=== PATIENT | male | born 1940 | race Caucasian/White ===

== ENCOUNTER → 2019-01-17 | Outpatient (CLI) | payer MEDICARE ==
[~2019-01-17] MED LIST: ASCO500 PO; CEPH500 PO; DONE5 PO; GLIM2 PO; GLUMETZA PO; HYDACE5 PO; LOSARTAN-HCTZ1 EAC1 PO
[2019-01-22 12:05] LABS: M-SPIKE, % Not Observed % (Not Observed); PROTEIN,TOTAL,URINE 7.5 mg/dL (Not Estab.)
== END | disposition home or self-care (01) ==
LOC: LAB SHORT 10:33 → LAB 10:33
PROVIDERS: Internal Medicine
DX: D64.9 Anemia, unspecified (principal); R79.89 Other specified abnormal findings of blood chemistry
CPT/HCPCS: 81050; 84166; 86335

== ENCOUNTER 2019-04-22 18:13 | Observation (INO) | payer MEDICARE ==
[~2019-04-22] VITALS: Ht 170.2 cm; Wt 72.8 kg
[~2019-04-22 18:13] MED LIST changes: +DONE10 PO; -DONE5 PO; +LOSARTAN POTAS100 MG PO; -LOSARTAN-HCTZ1 EAC1 PO
[2019-04-22 18:55] LABS: Source, Urine Clean Catch
[2019-04-22 18:58] LABS: BASOPHILS ABSOLUTE AUTO 0.07 K/mm3 (0.00-0.23); BASOPHILS PERCENT AUTO 1 % (0-2); EOSINOPHILS ABSOLUTE AUTO 0.09 K/mm3 (0.00-0.68); EOSINOPHILS PERCENT AUTO 1 % (0-6); Hematocrit 41.5 % (37.0-53.0); IMMATURE GRAN ABSOLUTE AUTO 0.04 K/mm3 (0.00-0.10); IMMATURE GRAN PERCENT AUTO 1 % (0-1); LYMPHOCYTES ABSOLUTE AUTO 1.96 K/mm3 (0.84-5.20); LYMPHOCYTES PERCENT AUTO 23 % (21-46); MONOCYTES ABSOLUTE AUTO 0.65 K/mm3 (0.16-1.47); MONOCYTES PERCENT AUTO 8 % (4-13); Mean Corpuscular HGB 28.7 pg (26.0-34.0); Mean Corpuscular HGB Conc 31.3 g/dL (31.5-36.5); Mean Corpuscular Volume 92 fL (80-100); Mean Platelet Volume 9.9 fL (9.1-12.4); NEUTROPHILS ABSOLUTE AUTO 5.69 K/mm3 (1.96-9.15); NEUTROPHILS PERCENT AUTO 67 % (41-73); Platelet Count 291 K/mm3 (150-400); RDW Standard Deviation 47.3 fL (35.1-46.3); Red Blood Cell Count 4.53 M/mm3 (4.30-5.90)
[2019-04-22 19:09] LABS: Bilirubin, Total 0.4 mg/dL (0.1-1.0); Bun/Creatinine Ratio 13.8 (12.0-20.0); Calcium, Blood 9.4 mg/dL (8.5-10.1); Creatinine, Blood 1.45 mg/dL (0.60-1.20)
[2019-04-22 19:16] LABS: Bilirubin, Urine Neg (Neg); Blood, Urine Neg (Neg); Glucose Qualitative, Urine Neg (Neg); Ketones, Urine 1+ (Neg); Leukocyte Esterase, Urine 1+ (Neg); Nitrite, Urine Neg (Neg); Protein, Urine 2+ (Neg); Urobilinogen, Urine 1+ (Normal)
[2019-04-22 19:34] LABS: Appearance, Urine Hazy (Clear); Color, Urine Yellow (P-Yellow)
[2019-04-22 19:35] LABS: Red Blood Cells, Urine 0-2 /hpf (0-2)
[2019-04-22 19:36] LABS: Bacteria Few /hpf; Squamous Epithelial Cells Rare /hpf (Few)
[2019-04-22] MEDS ORDERED: Metformin HCl1000 MG PO (19:40)
[2019-04-22] MEDS ORDERED: AMLO5 (19:41)
[2019-04-23 04:41] LABS: Hematocrit 37.5 % (37.0-53.0); Hemoglobin 11.9 g/dL (13.5-17.5); Mean Corpuscular HGB 28.3 pg (26.0-34.0); Mean Corpuscular HGB Conc 31.7 g/dL (31.5-36.5); Mean Corpuscular Volume 89 fL (80-100); Mean Platelet Volume 10.2 fL (9.1-12.4); Platelet Count 255 K/mm3 (150-400); RDW Coefficient Variation 14.2 % (11.7-14.2); RDW Standard Deviation 45.1 fL (35.1-46.3); White Blood Cell Count 7.55 K/mm3 (4.00-11.30)
[2019-04-23 05:05] LABS: Alanine Aminotransfer (ALT/SGP 26 U/L (12-78); Albumin, Blood 3.5 g/dL (3.4-5.0); Albumin/Globulin Ratio 1.1 (0.8-1.8); Alk Phos 91 U/L (50-136); Anion Gap 4 mmol/L (6-16); Aspartate Aminotrans (AST/SGOT 18 U/L (12-37); Bilirubin, Total 0.5 mg/dL (0.1-1.0); Blood Urea Nitrogen 18 mg/dL (8-24); Bun/Creatinine Ratio 15.1 (12.0-20.0); CO2, Blood 27 mmol/L (21-32); Calcium, Blood 8.7 mg/dL (8.5-10.1); Chloride, Blood 111 mmol/L (98-108); Creatinine, Blood 1.19 mg/dL (0.60-1.20); Globulin, Blood 3.2 g/dL (2.2-4.0); Glomerular Filtration Rate >60 (60-); Glucose, Blood 92 mg/dL (70-99); Potassium, Blood 4.2 mmol/L (3.5-5.5); Sodium, Blood 142 mmol/L (136-145); Total Protein, Blood 6.7 g/dL (6.4-8.2)
--- NOTE | 2019-04-23 05:40 | NUR ---
TRANSFER AND SUMMARY: REPORT RECIEVED FROM BRETT, SUPERVISOR BENZENE REFINING AND PT T/F VIA W/C TO ROOM 362 AT 0002. HE IS MOSTLY ORIENTED BUT WAS CONFUSED TO DATE/PLACE AND IS NOTED TO BE FORGETFUL MAKING ATTEMPTS OOB BY SELF TO USE RESTROOM DESPITE CALL LIGHT EDUCATION AND REINFORCEMENT. BED ALARM ARMED D/T ADMISSION FOR DEHYDRATION W/NEAR SYNCOPAL EPISODE PRIOR TO ADMIT. PT HAS DENIED DIZZINESS AND ALL OTHER COMPLAINTS. STAFF UNSURE IF THIS IMPULSIVITY AND MILD CONFUSION IS PRESENT AT BASELINE. NS WAS COMMENCED PER EMAR AND LOVENOX RECIEVED. PT SEEMS TO BE VOIDING W/O DIFFICULTY AND HAD A BM THIS SHIFT. AM LABS PENDING. ECHO PLANNED FOR TODAY WELL LLE U/S TO R/O DVT. NO ACUTE CHANGES, VSS AND AFEBRILE. PT IS S.JOSH PER TELEMETRY, HR 40-50'S BUT THIS IS REPORTED TO BE CHRONIC. WCTM AND REPORT TO DAY RN.
--- NOTE | 2019-04-23 11:12 | NUR ---
Echocardiogram completed.
--- NOTE | 2019-04-23 11:17 | NUR ---
Patient immediately atates that he has no idea why he is in the hospital but says that he has a terrible memory. Patient repeats that statement several times. Patient does know that he would appreciate prayer and so I gladly provide prayer. Patient responds well and and at least in that moment shows signs of an elevated mood.
--- NOTE | 2019-04-23 15:58 | NUR ---
pt discharged the pt and his verbalized understanding of the pt dc instructions, the pt was transfered via wheelchair a/ox3, appeared to be breathing easily on ra, an appointment was made with dr. luque for post hospital review, no new prescriptions
== END 2019-04-23 14:57 | disposition home or self-care (01) ==
LOC: ER 18:13 → MEDS 22:28
PROVIDERS: Physician Assistant; ADMIT Internal Medicine
DX: R41.82 Altered mental status, unspecified (principal); R55 Syncope and collapse; E86.0 Dehydration; I49.8 Other specified cardiac arrhythmias; E11.22 Type 2 diabetes mellitus with diabetic chronic kidney disease; I12.9 Hypertensive chronic kidney disease with stage 1 through stage 4 chronic kidney disease, or unspecified chronic kidney disease; N18.2 Chronic kidney disease, stage 2 (mild)
CPT/HCPCS: 36415; 70450; 71046; 80053; 81001; 82947; 84484; 85025; 85027; 87086; 93005; 93010; 93306; 93971; 96360; 96372; 99285-25; G0378; J1650; J7030